=== PATIENT | male | born 1945 | race Caucasian/White ===

== ENCOUNTER 2016-03-21 16:52 | Emergency (ER) | payer MEDICARE, OTHER ==
[~2016-03-21] VITALS: Ht 182.9 cm; Wt 102.1 kg
[2016-03-21 17:19] LABS: BASOPHILS % (AUTO) 0.3 % (0.0-2.0); DIFF TOTAL % 100 %; EOSINOPHILS # (AUTO) 0.1 /CMM (0.0-0.7); EOSINOPHILS % (AUTO) 1.8 % (0.0-6.0); HEMATOCRIT 39 % (39-51); LYMPHOCYTES # (AUTO) 0.9 /CMM (0.8-4.8); LYMPHOCYTES % (AUTO) 17.1 % (20.0-44.0); MEAN CORPUSCULAR HEMOGLOBIN 32 PG (26.0-33.0); MEAN CORPUSCULAR HGB CONC 34 g/dl (31.0-36.0); MEAN CORPUSCULAR VOLUME 96 fL (80-96); MONOCYTES # (AUTO) 0.5 /CMM (0.1-1.30); MONOCYTES % (AUTO) 9.9 % (2.0-12.0); NEUTROPHILS # (AUTO) 3.8 /CMM (1.8-8.9); NEUTROPHILS % (AUTO) 70.9 % (43.0-81.0); PLATELET COUNT (AUTO) 231 /CMM (150-450); RED BLOOD CELL COUNT(AUTO) 4.03 MIL/uL (4.5-6.0); WHITE BLOOD COUNT (AUTO) 5.4 K/uL (4.3-11.0)
[2016-03-21 17:27] LABS: CALCIUM, SERUM 8.8 mg/dL (8.5-10.1); CREATININE 1.1 mg/dL (0.6-1.3); POTASSIUM 3.9 mmol/L (3.5-5.1)
[2016-03-21 17:35] LABS: TROPONIN I 0.02 ng/mL (0.00-0.056)
[2016-03-21 17:40] LABS: BILIRUBIN,DIRECT 0.2 mg/dL (0.0-0.2); BILIRUBIN,TOTAL 0.9 mg/dL (0.2-1.0); INDIRECT BILIRUBIN 0.7 mg/dL (0.0-1.1); TOTAL PROTEIN, SERUM 7.5 g/dL (6.4-8.2)
[2016-03-21 17:42] LABS: INR 0.96 (0.87-1.13); PROTHROMBIN TIME 10.4 SECS (9.5-12.7)
[2016-03-21 18:13] VITALS: BP 146/94
== END 2016-03-21 19:08 | disposition home or self-care (01) ==
LOC: ER 16:54
DX: R07.9 Chest pain, unspecified (principal); V43.52XA Car driver injured in collision with other type car in traffic accident, initial encounter; Y93.89 Activity, other specified; Y92.488 Other paved roadways as the place of occurrence of the external cause; Y99.8 Other external cause status
CPT/HCPCS: 36415; 71010-TC; 80048-TC; 80076-TC; 83880; 84484-TC; 85025-TC; 85730-TC; A4606; Z7610

== ENCOUNTER 2021-05-11 17:39 | Emergency (ER) | payer MEDICARE, OTHER ==
[~2021-05-11] VITALS: Ht 182.9 cm; Wt 104.3 kg
[~2021-05-11 17:39] MED LIST: DOXY100T2 PO; FLUT16SP; FURO40TA5 PO; HYDR-3980 PO; HYDR-4077 PO; LABE100T5 PO; LOVA20TA2 PO; OMEP20CA15 PO; RAMI5CAP66 PO; SPIR25TA PO; TAMS-12 PO
[2021-05-11] MEDS ORDERED: LIDOCAINE VISCOUS 2% UD 15 ML UDC ONE (18:04)
[2021-05-11] MEDS ORDERED: ONDANSETRON HCL/PF 4 MG/2 ML VIAL ONE (18:16)
[2021-05-11] MEDS ORDERED: ONDANSETRON HCL/PF - ER 4 MG/2 ML VIAL IV ONE ×2 (18:30)
--- NOTE | 2021-05-11 18:30 | NUR ---
Dr Santiago applied Rhino Rocket 7.5cm Anterior posterior on Right nare to control Bleeding
--- NOTE | 2021-05-11 18:47 | NUR ---
PAGED DR. HUDDLESTON AT [phone]
[2021-05-11 19:30] LABS: CALCIUM, SERUM 8.7 mg/dL (8.5-10.1); CREATININE 1.2 mg/dL (0.6-1.3); POTASSIUM 3.9 mmol/L (3.5-5.1)
--- NOTE | 2021-05-11 19:34 | NUR ---
PAGED DR AMMON MARQUEZ. AWAITING FOR HIS CALL BACK
[2021-05-11 19:47] LABS: BASOPHILS % (AUTO) 0.2 % (0.0-2.0); EOSINOPHILS % (AUTO) 0.4 % (0.0-6.0); HEMATOCRIT 25 % (39-51); HEMOGLOBIN 8.7 g/dL (13.5-17.5); LYMPHOCYTES % (AUTO) 12.2 % (20.0-44.0); MEAN CORPUSCULAR HGB CONC 34 g/dl (31.0-36.0); MEAN CORPUSCULAR VOLUME 99 fL (80-96); MONOCYTES # (AUTO) 0.8 K/uL (0.1-1.30); MONOCYTES % (AUTO) 9.5 % (2.0-12.0); NEUTROPHILS # (AUTO) 6.2 K/uL (1.8-8.9); NEUTROPHILS % (AUTO) 77.7 % (43.0-81.0); PLATELET COUNT (AUTO) 281 K/uL (150-450); RED BLOOD CELL COUNT(AUTO) 2.57 MIL/uL (4.5-6.0)
--- NOTE | 2021-05-11 20:16 | NUR ---
PER WILMER FROM [facility], NO CAPACITY FOR PTS.
--- NOTE | 2021-05-11 20:20 | NUR ---
[facility] DENIED TRANSFER REQUEST.
--- NOTE | 2021-05-11 20:23 | NUR ---
[facility] DENIED TRANSFER REQUEST.
--- NOTE | 2021-05-11 20:25 | NUR ---
PT WILL BE PLACED ON PENDING TRANSFER LIST PER LILIANE FROM [facility]. [facility] NOW
--- NOTE | 2021-05-11 20:34 | NUR ---
FAXED CLINICALS OVER TO [facility]. AWAITING A RESPONSE
--- NOTE | 2021-05-11 22:00 | NUR ---
SPOKE TO BRADLEY AT [facility]. NNO ENT ON BOARD
[2021-05-11 22:09] LABS: BASOPHILS % (AUTO) 0.4 % (0.0-2.0); EOSINOPHILS % (AUTO) 0.2 % (0.0-6.0); HEMATOCRIT 25 % (39-51); HEMOGLOBIN 8.5 g/dL (13.5-17.5); LYMPHOCYTES # (AUTO) 1.2 K/uL (0.8-4.8); LYMPHOCYTES % (AUTO) 14.4 % (20.0-44.0); MEAN CORPUSCULAR HGB CONC 34 g/dl (31.0-36.0); MEAN CORPUSCULAR VOLUME 99 fL (80-96); MONOCYTES # (AUTO) 0.9 K/uL (0.1-1.30); MONOCYTES % (AUTO) 10.3 % (2.0-12.0); NEUTROPHILS # (AUTO) 6.2 K/uL (1.8-8.9); NEUTROPHILS % (AUTO) 74.7 % (43.0-81.0); PLATELET COUNT (AUTO) 290 K/uL (150-450); RED BLOOD CELL COUNT(AUTO) 2.52 MIL/uL (4.5-6.0); WHITE BLOOD COUNT (AUTO) 8.3 K/uL (4.3-11.0)
--- NOTE | 2021-05-11 22:18 | NUR ---
CALLED [facility] AND LEFT A MESSAGE. AWAITING FOR A CALL BACK
[2021-05-11] MEDS ORDERED: CEPHALEXIN MONOHYDRATE 500 MG CAPSULE PO ONE ×2 (22:30→22:35)
[2021-05-11] MEDS ORDERED: HYDROCODONE/APAP 10/325MG TABLET PO ONE (23:00)
[2021-05-11] MEDS ORDERED: HYDROCODONE/APAP 10/325MG TABLET ONE (23:13)
--- NOTE | 2021-05-12 00:13 | NUR ---
CALLED [facility] AND OPENED A CASE; HOWEVER, PER BC THE TRANSFER IS NOT [place] [employer]. WILL FAX THE CLINICALS AND FACE SHEET TO [phone]
--- NOTE | 2021-05-12 00:18 | NUR ---
COVID ANTIGEN SWAB COLLECTED AND SENT TO LAB
[2021-05-12] MEDS ORDERED: hydrALAZINE HCL 50 MG TABLET ONE (00:58)
[2021-05-12] MEDS ORDERED: DOXYCYCLINE HYCLATE (100 MG) 100 MG TABLET ONE (00:58)
[2021-05-12] MEDS ORDERED: TAMSULOSIN 0.4 MG CAP.SR.24H ONE (00:58)
[2021-05-12] MEDS ORDERED: DOXYCYCLINE HYCLATE (100 MG) 100 MG TABLET PO ONE (01:00)
[2021-05-12] MEDS ORDERED: hydrALAZINE HCL 25 MG TABLET PO ONE (01:00)
[2021-05-12] MEDS ORDERED: TAMSULOSIN 0.4 MG CAP.SR.24H PO ONE (01:00)
[2021-05-12] MEDS ORDERED: HYDROCODONE/APAP 10/325MG TABLET PO ONE (04:30)
[2021-05-12] MEDS ORDERED: HYDROCODONE/APAP 10/325MG TABLET ONE (04:32)
--- NOTE | 2021-05-12 06:10 | NUR ---
PT COMPLAINS HIS NOSE STARTED BLEEDING AGAIN, NOTED RHINO ROCKET VERY SATURATED. PROVIDED GAUZE FOR REINFORCEMENT AND ICE PACK TO HELP CONTROL BLEEDING. ADVISED PT NOT TO BLOW HIS NOSE. DR FERRARO WAS MADE AWARE
--- NOTE | 2021-05-12 07:30 | NUR ---
Dr Santiago in to update patient with plan of care. NO active Bleeding at this time. Rhino Rocket on Right Nare in Place. Breakfast Served- Ate 100%
--- NOTE | 2021-05-12 08:45 | NUR ---
CALLED DR. HUDDLESTON AT [phone] LEFT
[2021-05-12] MEDS ORDERED: CEPH500C2 PO (08:49)
--- NOTE | 2021-05-12 08:59 | NUR ---
Pt insistent on leaving Dr Santiago in to speak with pt Against Medical Advise. Pt REFUSING to Sign and Eloped. NO Active Bleeding. Ambulatory VSS
[2021-05-12 09:01] VITALS: BP 125/70
== END 2021-05-12 09:01 | disposition left against medical advice (07) ==
LOC: ER 17:41
DX: R04.0 Epistaxis (principal); R11.10 Vomiting, unspecified; D64.9 Anemia, unspecified; Z20.822 Contact with and (suspected) exposure to COVID-19; Z53.29 Procedure and treatment not carried out because of patient's decision for other reasons; Z95.2 Presence of prosthetic heart valve; Z79.82 Long term (current) use of aspirin; Z79.899 Other long term (current) drug therapy; I10 Essential (primary) hypertension
CPT/HCPCS: 30901; 36415; 80048; 85025 ×2; 85730; 86850; 87426; 96374; 99291; A6403; J2405 ×2; C9803

== ENCOUNTER 2023-01-23 15:39 | Inpatient (IN) | payer MEDICARE, MEDICAID ==
[~2023-01-23] VITALS: Ht 184.2 cm; Wt 113.4 kg
[~2023-01-23 15:39] MED LIST changes: +CEPH500C2 PO
[2023-01-23] MEDS ORDERED: MORPHINE SULFATE INJ 2 MG/ML DISP.SYRIN IV ONE (16:00)
[2023-01-23] MEDS ORDERED: IV NS 0.9% 1,000 ML IV ONE (16:00)
[2023-01-23] MEDS ORDERED: MORPHINE SULFATE INJ 2 MG/ML DISP.SYRIN ONE (16:24)
[2023-01-23 16:40] LABS: BASOPHILS % (AUTO) 0.2 % (0.0-2.0); HEMATOCRIT 35 % (39-51); HEMOGLOBIN 11.8 g/dL (13.5-17.5); LYMPHOCYTES # (AUTO) 0.8 K/uL (0.8-4.8); LYMPHOCYTES % (AUTO) 7.6 % (20.0-44.0); MEAN CORPUSCULAR HEMOGLOBIN 34 PG (26.0-33.0); MEAN CORPUSCULAR HGB CONC 34 g/dl (31.0-36.0); MEAN CORPUSCULAR VOLUME 101 fL (80-96); MONOCYTES # (AUTO) 0.8 K/uL (0.1-1.30); MONOCYTES % (AUTO) 8.1 % (2.0-12.0); NEUTROPHILS # (AUTO) 8.4 K/uL (1.8-8.9); NEUTROPHILS % (AUTO) 84.1 % (43.0-81.0); PLATELET COUNT (AUTO) 261 K/uL (150-450); RED BLOOD CELL COUNT(AUTO) 3.49 MIL/uL (4.5-6.0); RED CELL DISTRIBUTION WIDTH 12.6 % (11.5-15.0)
[2023-01-23 17:00] LABS: CALCIUM, SERUM 8.8 mg/dL (8.5-10.1); CARBON DIOXIDE 20 mmol/L (21-32); CHLORIDE 102 mmol/L (98-107); CREATININE 1.3 mg/dL (0.6-1.3); GLUCOSE 102 mg/dL (74-106); POTASSIUM 4.1 mmol/L (3.5-5.1); SODIUM SERUM 135 mmol/L (136-145); UREA NITROGEN, BLOOD 26 mg/dL (7-18)
[2023-01-23 17:03] LABS: INR 1.03 (0.91-1.10); PARTIAL THROMBOPLASTIN TIME 31.8 SEC (24.3-34.3); PROTHROMBIN TIME 10.9 SECS (9.2-11.1)
[2023-01-23] MEDS ORDERED: METO200T49 PO (17:24)
[2023-01-23] MEDS ORDERED: CETI-90 PO (17:24)
[2023-01-23] MEDS ORDERED: OXYC10TA49 PO (17:24)
[2023-01-23] MEDS ORDERED: ALBU8.5H8 IH (17:24)
[2023-01-23] MEDS ORDERED: FLUT1DIS IH (17:24)
[2023-01-23] MEDS ORDERED: RIVA15TA PO (17:24)
[2023-01-23] MEDS ORDERED: FURO-145 PO (17:24)
[2023-01-23] MEDS ORDERED: HYDROMORPHONE 1 MG/1 ML DISP.SYRIN IV ONE (18:00)
[2023-01-23] MEDS ORDERED: HYDROMORPHONE 1 MG/1 ML DISP.SYRIN ONE (18:10)
[2023-01-23] MEDS ORDERED: ONDANSETRON HCL/PF 4 MG/2 ML VIAL IVP PRN (19:30)
[2023-01-23] MEDS ORDERED: ACETAMINOPHEN 325 MG TABLET PO PRN (19:30)
[2023-01-23] MEDS ORDERED: MORPHINE SULFATE INJ 2 MG/ML DISP.SYRIN IV PRN (19:30)
[2023-01-23 21:00] VITALS: BP 151/93; TEMP 97.7; O2SAT 98
[2023-01-23] MEDS: ENOXAPARIN SODIUM 40 MG/0.4 ML DISP.SYRIN SQ SCH (21:05)
[2023-01-23] MEDS: HYDROMORPHONE 1 MG/1 ML DISP.SYRIN IV PRN (22:11)
[2023-01-23 23:41] VITALS: BP 151/93; TEMP 97.7; O2SAT 98
[2023-01-24] MEDS: HYDROMORPHONE 1 MG/1 ML DISP.SYRIN IV PRN ×5 (02:23→23:12)
[2023-01-24 06:19] LABS: BASOPHILS % (AUTO) 0.2 % (0.0-2.0); EOSINOPHILS % (AUTO) 0.2 % (0.0-6.0); HEMATOCRIT 25 % (39-51); HEMOGLOBIN 8.1 g/dL (13.5-17.5); LYMPHOCYTES # (AUTO) 0.8 K/uL (0.8-4.8); LYMPHOCYTES % (AUTO) 14.3 % (20.0-44.0); MEAN CORPUSCULAR HEMOGLOBIN 33 PG (26.0-33.0); MEAN CORPUSCULAR HGB CONC 33 g/dl (31.0-36.0); MEAN CORPUSCULAR VOLUME 102 fL (80-96); MONOCYTES # (AUTO) 0.8 K/uL (0.1-1.30); MONOCYTES % (AUTO) 15.5 % (2.0-12.0); NEUTROPHILS # (AUTO) 3.8 K/uL (1.8-8.9); NEUTROPHILS % (AUTO) 69.8 % (43.0-81.0); PLATELET COUNT (AUTO) 157 K/uL (150-450); RED BLOOD CELL COUNT(AUTO) 2.43 MIL/uL (4.5-6.0); RED CELL DISTRIBUTION WIDTH 12.9 % (11.5-15.0); WHITE BLOOD COUNT (AUTO) 5.4 K/uL (4.3-11.0)
[2023-01-24 06:54] LABS: CREATININE 0.9 mg/dL (0.6-1.3); PHOSPHORUS 3.3 mg/dL (2.5-4.9); POTASSIUM 2.9 mmol/L (3.5-5.1)
[2023-01-24] MEDS ORDERED: OMEPRAZOLE 20 MG CAPSULE.DR PO SCH (07:30)
[2023-01-24 07:47] LABS: CALCIUM, SERUM 5.8 mg/dL (8.5-10.1); MAGNESIUM 1.1 mg/dL (1.8-2.4)
[2023-01-24 08:00] VITALS: BP 142/75; TEMP 98.6; O2SAT 96
[2023-01-24 08:27] LABS: IRON, SERUM 53 ug/dl (50-175)
[2023-01-24] MEDS: RAMIPRIL 5 MG CAPSULE PO SCH (08:44)
[2023-01-24] MEDS: SPIRONOLACTONE 25 MG TABLET PO SCH (08:44)
[2023-01-24] MEDS: hydrALAZINE HCL 50 MG TABLET PO SCH (08:44)
[2023-01-24] MEDS: cetrizine 10 MG TABLET PO SCH (08:45)
[2023-01-24] MEDS: TAMSULOSIN 0.4 MG CAP.SR.24H PO SCH (08:45)
[2023-01-24 08:49] LABS: CHOLESTEROL 78 mg/dL (<200); FERRITIN 133 ng/mL (8-388); HDL CHOLESTEROL 32 mg/dL (40-60); LDL 39 mg/dL (0-99); THYROID STIMULATING HORMONE 0.569 uIU/mL (0.358-3.74); TRIGLYCERIDES 52 mg/dL (30-150)
[2023-01-24] MEDS ORDERED: ALBUTEROL FS 2.5 MG/0.5 ML VIAL.NEB NEB PRN (09:00)
[2023-01-24] MEDS: METOPROLOL SUCCINATE 50 MG TAB.SR.24H PO SCH (09:00)
[2023-01-24] MEDS ORDERED: LOVASTATIN (NON FORMULARY) 20 MG TABLET PO SCH (09:00)
[2023-01-24] MEDS: ATORVASTATIN 10 MG TABLET PO SCH (09:00)
[2023-01-24] MEDS: POTASSIUM CL. PREMIX PERIPHER. 50 ML IV SCH ×6 (09:40→14:30)
[2023-01-24 11:08] LABS: CALCIUM, SERUM 8.2 mg/dL (8.5-10.1)
[2023-01-24 11:16] LABS: LYMPHOCYTES # (AUTO) 0.8 K/uL (0.8-4.8); MEAN CORPUSCULAR HEMOGLOBIN 34 PG (26.0-33.0); MEAN CORPUSCULAR HGB CONC 34 g/dl (31.0-36.0); NEUTROPHILS # (AUTO) 4.9 K/uL (1.8-8.9)
[2023-01-24 11:20] LABS: BASOPHILS % (AUTO) 0.2 % (0.0-2.0); EOSINOPHILS % (AUTO) 0.1 % (0.0-6.0); HEMATOCRIT 30 % (39-51); LYMPHOCYTES % (AUTO) 12.2 % (20.0-44.0); MEAN CORPUSCULAR VOLUME 100 fL (80-96); MONOCYTES % (AUTO) 14.7 % (2.0-12.0); NEUTROPHILS % (AUTO) 72.8 % (43.0-81.0); PLATELET COUNT (AUTO) 197 K/uL (150-450); RED BLOOD CELL COUNT(AUTO) 2.95 MIL/uL (4.5-6.0); RED CELL DISTRIBUTION WIDTH 12.5 % (11.5-15.0); WHITE BLOOD COUNT (AUTO) 6.8 K/uL (4.3-11.0)
[2023-01-24 11:31] LABS: TOTAL IRON BINDING CAPACITY 220 ug/dl (250-450)
[2023-01-24 11:40] LABS: POTASSIUM 8.5 mmol/L (3.5-5.1)
[2023-01-24 12:29] LABS: APPEARANCE,URINE SLIGHTLY CLOUDY (CLEAR); BILIRUBIN,URINE NEGATIVE (NEGATIVE); BLOOD, URINE NEGATIVE Ery/uL (NEGATIVE); COLOR,URINE DARK YELLOW (YELLOW); KETONES,URINE 1+ mg/dL (NEGATIVE); LEUKOCYTE ESTERASE ,URINE NEGATIVE (NEGATIVE); NITRITE, URINE NEGATIVE (NEGATIVE); PROTEIN,URINE NEGATIVE (NEGATIVE); UGLUCOSE NEGATIVE (NEGATIVE); UROBILINOGEN,URINE 0.2 EU/dL (0.2)
[2023-01-24] MEDS: HYDROCODONE/APAP 5/325MG TABLET PO PRN ×2 (12:31→18:12)
[2023-01-24 12:36] LABS: CREATININE, URINE 187.9 MG/DL (30.0-125.0); URINE TOTAL PROTEIN 30.3 mg/dL (0-11.9)
[2023-01-24 12:38] LABS: ADD URINE CULTURE NO; BACTERIA,URINE Rare /HPF (None Seen); RBC,URINE 0-2 /HPF (0-2); SQUAMOUS EPITHELIAL CELL,UR Few /HPF (None Seen); WBC,URINE 0-2 /HPF (0-3)
[2023-01-24 12:43] LABS: EOSINOPHIL,URINE None Seen
[2023-01-24 14:52] LABS: CALCIUM, SERUM 7.9 mg/dL (8.5-10.1); CARBON DIOXIDE 23 mmol/L (21-32); CHLORIDE 105 mmol/L (98-107); CREATININE 1.2 mg/dL (0.6-1.3); GLUCOSE 96 mg/dL (74-106); POTASSIUM 4.4 mmol/L (3.5-5.1); SODIUM SERUM 137 mmol/L (136-145); UREA NITROGEN, BLOOD 28 mg/dL (7-18)
[2023-01-24] MEDS: IV NS 0.9% 1,000 ML IV PRN (14:53)
[2023-01-24 16:00] VITALS: BP 139/91; TEMP 98.8; O2SAT 96
[2023-01-24 20:00] VITALS: BP 144/89; TEMP 98.2; O2SAT 98
[2023-01-24] MEDS: ENOXAPARIN SODIUM 40 MG/0.4 ML DISP.SYRIN SQ SCH (21:00)
[2023-01-25] VITALS (10 sets, daily range): BP systolic 95–141; BP diastolic 60–81; TEMP 97.9–98.4; O2SAT 93–100
[2023-01-25] MEDS: HYDROMORPHONE 1 MG/1 ML DISP.SYRIN IV PRN ×4 (03:43→21:38)
[2023-01-25 05:51] LABS: BASOPHILS % (AUTO) 0.4 % (0.0-2.0); EOSINOPHILS # (AUTO) 0.1 K/uL (0.0-0.7); HEMATOCRIT 28 % (39-51); HEMOGLOBIN 9.4 g/dL (13.5-17.5); LYMPHOCYTES % (AUTO) 16.2 % (20.0-44.0); MEAN CORPUSCULAR HEMOGLOBIN 34 PG (26.0-33.0); MEAN CORPUSCULAR HGB CONC 34 g/dl (31.0-36.0); MEAN CORPUSCULAR VOLUME 101 fL (80-96); MONOCYTES # (AUTO) 0.8 K/uL (0.1-1.30); MONOCYTES % (AUTO) 13.7 % (2.0-12.0); NEUTROPHILS # (AUTO) 4.2 K/uL (1.8-8.9); NEUTROPHILS % (AUTO) 68.7 % (43.0-81.0); PLATELET COUNT (AUTO) 182 K/uL (150-450); RED BLOOD CELL COUNT(AUTO) 2.78 MIL/uL (4.5-6.0); RED CELL DISTRIBUTION WIDTH 12.6 % (11.5-15.0); WHITE BLOOD COUNT (AUTO) 6.1 K/uL (4.3-11.0)
[2023-01-25 06:03] LABS: ALBUMIN 2.8 g/dL (3.4-5.0); BILIRUBIN,TOTAL 0.8 mg/dL (0.2-1.0); CALCIUM, SERUM 8.3 mg/dL (8.5-10.1); CREATININE 1.2 mg/dL (0.6-1.3); MAGNESIUM 1.8 mg/dL (1.8-2.4); PHOSPHORUS 3.3 mg/dL (2.5-4.9); POTASSIUM 3.5 mmol/L (3.5-5.1); TOTAL PROTEIN, SERUM 5.9 g/dL (6.4-8.2)
[2023-01-25] MEDS: PANTOPRAZOLE 40 MG TABLET.DR PO SCH (07:30)
[2023-01-25] MEDS: SPIRONOLACTONE 25 MG TABLET PO SCH (08:06)
[2023-01-25] MEDS: TAMSULOSIN 0.4 MG CAP.SR.24H PO SCH (08:06)
[2023-01-25] MEDS: RAMIPRIL 5 MG CAPSULE PO SCH (08:06)
[2023-01-25] MEDS: hydrALAZINE HCL 50 MG TABLET PO SCH (08:06)
[2023-01-25] MEDS: METOPROLOL SUCCINATE 50 MG TAB.SR.24H PO SCH (08:07)
[2023-01-25] MEDS: ATORVASTATIN 10 MG TABLET PO SCH (08:07)
[2023-01-25] MEDS: cetrizine 10 MG TABLET PO SCH (08:07)
[2023-01-25] MEDS ORDERED: ANESTHESIA TRAY IN PYXIS 1 EA TRAY MC ONE (09:23)
[2023-01-25] MEDS ORDERED: FENTANYL PF 100MCG/2ML AMPUL ONE (10:07)
[2023-01-25] MEDS ORDERED: FAMOTIDINE/PF INJ 20 MG/2 ML VIAL IV ONE (10:07)
[2023-01-25] MEDS ORDERED: HYDROMORPHONE INJ 2 MG/ML DISP.SYRIN ONE (10:07)
[2023-01-25] MEDS ORDERED: TRANEXAMIC ACID 1,000 MG/10 ML VIAL ONE (10:08)
[2023-01-25] MEDS ORDERED: SEVOFLURANE 250 ML BOTTLE IH ONE (10:38)
[2023-01-25] MEDS ORDERED: DILTIAZEM HCL 25 MG IV ONE (13:10)
[2023-01-25] MEDS ORDERED: ALBUMIN 5% 250 ML IV ONE (13:10)
[2023-01-25] MEDS: CEFAZOLIN 2 GM in IV D5W 100 ML IV SCH (17:38)
[2023-01-25] MEDS: IV NS 0.9% 1,000 ML IV PRN (17:38)
[2023-01-25 19:07] LABS: HEMATOCRIT 27 % (39-51); LYMPHOCYTES # (AUTO) 0.2 K/uL (0.8-4.8); LYMPHOCYTES % (AUTO) 2.5 % (20.0-44.0); MEAN CORPUSCULAR HEMOGLOBIN 33 PG (26.0-33.0); MEAN CORPUSCULAR HGB CONC 33 g/dl (31.0-36.0); MEAN CORPUSCULAR VOLUME 100 fL (80-96); MONOCYTES # (AUTO) 0.3 K/uL (0.1-1.30); MONOCYTES % (AUTO) 3.5 % (2.0-12.0); NEUTROPHILS # (AUTO) 8.3 K/uL (1.8-8.9); PLATELET COUNT (AUTO) 176 K/uL (150-450); RED CELL DISTRIBUTION WIDTH 14.1 % (11.5-15.0); WHITE BLOOD COUNT (AUTO) 8.9 K/uL (4.3-11.0)
[2023-01-26] VITALS (16 sets, daily range): BP systolic 86–149; BP diastolic 59–96; TEMP 98.3–98.7; O2SAT 99–100
[2023-01-26] MEDS: CEFAZOLIN 2 GM in IV D5W 100 ML IV SCH (02:16)
[2023-01-26] MEDS: HYDROMORPHONE 1 MG/1 ML DISP.SYRIN IV PRN ×2 (03:42→09:35)
[2023-01-26] MEDS: TAMSULOSIN 0.4 MG CAP.SR.24H PO SCH (08:19)
[2023-01-26] MEDS: PANTOPRAZOLE 40 MG TABLET.DR PO SCH (08:19)
[2023-01-26] MEDS: cetrizine 10 MG TABLET PO SCH (08:20)
[2023-01-26] MEDS: SPIRONOLACTONE 25 MG TABLET PO SCH (08:20)
[2023-01-26] MEDS: ATORVASTATIN 10 MG TABLET PO SCH (08:20)
[2023-01-26] MEDS: RAMIPRIL 5 MG CAPSULE PO SCH (08:20)
[2023-01-26] MEDS: METOPROLOL SUCCINATE 50 MG TAB.SR.24H PO SCH (08:22)
[2023-01-26] MEDS: hydrALAZINE HCL 50 MG TABLET PO SCH (08:22)
[2023-01-26 09:29] LABS: CALCIUM, SERUM 8.1 mg/dL (8.5-10.1); CREATININE 1.1 mg/dL (0.6-1.3); POTASSIUM 3.9 mmol/L (3.5-5.1)
[2023-01-26] MEDS: IV NS 0.9% 1,000 ML IV PRN (09:34)
[2023-01-26 09:38] LABS: ALBUMIN 2.5 g/dL (3.4-5.0); BILIRUBIN,TOTAL 0.7 mg/dL (0.2-1.0); TOTAL PROTEIN, SERUM 5.3 g/dL (6.4-8.2)
[2023-01-26 10:19] LABS: HEMOGLOBIN 7.7 g/dL (13.5-17.5)
[2023-01-26] MEDS ORDERED: ENOXAPARIN SODIUM 40 MG/0.4 ML DISP.SYRIN SQ SCH (14:00)
[2023-01-26] MEDS: HYDROCODONE/APAP 5/325MG TABLET PO PRN (23:58)
[2023-01-27] VITALS (7 sets, daily range): BP systolic 105–140; BP diastolic 59–85; TEMP 97.8–98.9; O2SAT 98–100
[2023-01-27] MEDS: IV NS 0.9% 1,000 ML IV PRN ×2 (06:15→23:36)
[2023-01-27 06:23] LABS: BASOPHILS % (AUTO) 0.1 % (0.0-2.0); EOSINOPHILS # (AUTO) 0.1 K/uL (0.0-0.7); EOSINOPHILS % (AUTO) 0.7 % (0.0-6.0); HEMATOCRIT 26 % (39-51); HEMOGLOBIN 8.8 g/dL (13.5-17.5); LYMPHOCYTES % (AUTO) 13.8 % (20.0-44.0); MEAN CORPUSCULAR HEMOGLOBIN 33 PG (26.0-33.0); MEAN CORPUSCULAR HGB CONC 34 g/dl (31.0-36.0); MEAN CORPUSCULAR VOLUME 98 fL (80-96); MONOCYTES # (AUTO) 0.8 K/uL (0.1-1.30); MONOCYTES % (AUTO) 11.5 % (2.0-12.0); NEUTROPHILS # (AUTO) 5.4 K/uL (1.8-8.9); NEUTROPHILS % (AUTO) 73.9 % (43.0-81.0); PLATELET COUNT (AUTO) 225 K/uL (150-450); RED BLOOD CELL COUNT(AUTO) 2.65 MIL/uL (4.5-6.0); RED CELL DISTRIBUTION WIDTH 13.9 % (11.5-15.0); WHITE BLOOD COUNT (AUTO) 7.3 K/uL (4.3-11.0)
[2023-01-27 06:52] LABS: CALCIUM, SERUM 8.6 mg/dL (8.5-10.1); CREATININE 0.8 mg/dL (0.6-1.3); MAGNESIUM 1.9 mg/dL (1.8-2.4); PHOSPHORUS 2.1 mg/dL (2.5-4.9); POTASSIUM 3.5 mmol/L (3.5-5.1)
[2023-01-27] MEDS: PANTOPRAZOLE 40 MG TABLET.DR PO SCH (07:30)
[2023-01-27] MEDS: hydrALAZINE HCL 50 MG TABLET PO SCH (08:22)
[2023-01-27] MEDS: TAMSULOSIN 0.4 MG CAP.SR.24H PO SCH (08:23)
[2023-01-27] MEDS: ATORVASTATIN 10 MG TABLET PO SCH (08:23)
[2023-01-27] MEDS: METOPROLOL SUCCINATE 50 MG TAB.SR.24H PO SCH (08:23)
[2023-01-27] MEDS: RAMIPRIL 5 MG CAPSULE PO SCH (08:23)
[2023-01-27] MEDS: SPIRONOLACTONE 25 MG TABLET PO SCH (08:23)
[2023-01-27] MEDS: cetrizine 10 MG TABLET PO SCH (08:23)
[2023-01-27] MEDS: HYDROCODONE/APAP 5/325MG TABLET PO PRN (09:43)
[2023-01-27] MEDS ORDERED: NEUTRA PHOS 1 POWD.PACKET PO ONE (16:00)
[2023-01-27] MEDS: GABAPENTIN 300 MG CAPSULE PO SCH (17:39)
[2023-01-28] VITALS: BP 119/66; TEMP 98.2; O2SAT 98
[2023-01-28] MEDS: HYDROMORPHONE 1 MG/1 ML DISP.SYRIN IV PRN (03:40)
[2023-01-28 07:30] VITALS: BP_SYST 118; BP_SYST 120; BP_DIAS 45; BP_DIAS 78; TEMP 97.5; TEMP 99.1; O2SAT 83; O2SAT 98
[2023-01-28] MEDS ORDERED: NEUTRA PHOS 1 POWD.PACKET PO SCH (07:30)
[2023-01-28 08:00] VITALS: BP 124/52; TEMP 98.6; O2SAT 98
[2023-01-28] MEDS: hydrALAZINE HCL 50 MG TABLET PO SCH (09:00)
[2023-01-28] MEDS: METOPROLOL SUCCINATE 50 MG TAB.SR.24H PO SCH (09:00)
[2023-01-28] MEDS: RAMIPRIL 5 MG CAPSULE PO SCH (09:00)
[2023-01-28] MEDS: GABAPENTIN 300 MG CAPSULE PO SCH ×2 (09:12→13:46)
[2023-01-28] MEDS: ATORVASTATIN 10 MG TABLET PO SCH (09:13)
[2023-01-28] MEDS: cetrizine 10 MG TABLET PO SCH (09:13)
[2023-01-28] MEDS: TAMSULOSIN 0.4 MG CAP.SR.24H PO SCH (09:13)
[2023-01-28] MEDS: SPIRONOLACTONE 25 MG TABLET PO SCH (09:14)
[2023-01-28] MEDS: PANTOPRAZOLE 40 MG TABLET.DR PO SCH (09:14)
[2023-01-28] MEDS: HYDROCODONE/APAP 5/325MG TABLET PO PRN (09:42)
[2023-01-28] MEDS ORDERED: GABA300C PO (12:57)
[2023-01-28] MEDS ORDERED: PANT40TA49 PO (12:57)
[2023-01-28 16:00] VITALS: BP 131/50; TEMP 98.5; O2SAT 98
== END 2023-01-28 16:15 | DRG 481 ==
LOC: ER 15:41 → MED 20:24 → ICU 01-25 14:43 → MED 01-28 09:48
PROVIDERS: ADMIT Nurse Practitioner Acute Care; ATTEND Nurse Practitioner Acute Care
PROC: 0QSC04Z Reposition Left Lower Femur with Internal Fixation Device, Open Approach (ICD-10-PCS; principal; 2023-01-25)
PROC: 30233N1 Transfusion of Nonautologous Red Blood Cells into Peripheral Vein, Percutaneous Approach (ICD-10-PCS; 2023-01-25)
PROC: 2W3BX1Z Immobilization of Left Upper Arm using Splint (ICD-10-PCS; 2023-01-25)
PROC: 05HB33Z Insertion of Infusion Device into Right Basilic Vein, Percutaneous Approach (ICD-10-PCS; 2023-01-28)
DX: S72.142A Displaced intertrochanteric fracture of left femur, initial encounter for closed fracture (principal); S42.495A Other nondisplaced fracture of lower end of left humerus, initial encounter for closed fracture; S72.22XA Displaced subtrochanteric fracture of left femur, initial encounter for closed fracture; W01.0XXA Fall on same level from slipping, tripping and stumbling without subsequent striking against object, initial encounter; Y92.032 Bedroom in apartment as the place of occurrence of the external cause; Z96.652 Presence of left artificial knee joint; I48.91 Unspecified atrial fibrillation; Z79.01 Long term (current) use of anticoagulants; E83.42 Hypomagnesemia; I10 Essential (primary) hypertension; E66.01 Morbid (severe) obesity due to excess calories; Z68.32 Body mass index [BMI] 32.0-32.9, adult; D50.9 Iron deficiency anemia, unspecified; E87.5 Hyperkalemia; E83.51 Hypocalcemia; E83.39 Other disorders of phosphorus metabolism; E87.6 Hypokalemia; Z79.899 Other long term (current) drug therapy; Z86.79 Personal history of other diseases of the circulatory system; J44.9 Chronic obstructive pulmonary disease, unspecified; Z87.891 Personal history of nicotine dependence; K21.9 Gastro-esophageal reflux disease without esophagitis; Z95.2 Presence of prosthetic heart valve; I72.4 Aneurysm of artery of lower extremity
CPT/HCPCS: 36410; 36415; 70450-TC; 71045-TC; 72125-TC; 73020; 73060-TC; 73080-TC; 73552; 73560-TC; 73700-TC; 80048-TC; 80053-TC; 80061-TC; 81001; 82550-TC; 82570-TC; 82728-TC; 83540-TC; 83735-TC; 84100-TC; 84300-TC; 84439-TC; 84443-TC; 84484-TC; 85025-TC; 85027-TC; 85730-TC; 86850-TC; 93307-TC; 97110-TC; 97112-TC; 97530-TC; A4223; A6209; A6253; C1713; G0378; J0690; J1100; J1170; J1650; J2270; J2405; J2704; J2765; J3010; J3480; J3490; J7030; J7040; J7050; J7060; P9016; P9045